=== PATIENT | female | born 1940 | race Caucasian/White ===

== ENCOUNTER 2017-09-03 10:36 | Inpatient (IN) | payer OTHER ==
[~2017-09-03] VITALS: Ht 142.2 cm; Wt 56.7 kg
[~2017-09-03 10:36] MED LIST: ASA-EC81 MG PO; CATAFLAM50 MG PO; HYDROCODONE-CH115 ML PO; LEVAQUIN750 MG PO; LIPITOR20 MG PO; METFORMIN HCL1000 MG PO; METFORMIN HCL500 MG PO; NIFE60TA3 PO; OMEPRAZOLE20 MG PO; ORPH100T PO; PREDNISONE10 MG PO; PREDNISONE20 MG PO; ULTRAM50 MG PO; ZANTAC 7575 MG PO
[2017-09-12] MEDS ORDERED: LORATADINE10 MG PO (15:35)
[2017-09-12] MEDS ORDERED: QUESTRAN PACKET4 GM PO (15:36)
== END 2017-09-12 16:32 | disposition home or self-care (01) | DRG 193 ==
LOC: ER 10:36 → MEDI 17:15
PROC: 5A09457 Assistance with Respiratory Ventilation, 24-96 Consecutive Hours, Continuous Positive Airway Pressure (ICD-10-PCS; principal; 2017-09-03)
PROC: 3E0F7GC Introduction of Other Therapeutic Substance into Respiratory Tract, Via Natural or Artificial Opening (ICD-10-PCS; 2017-09-03)
PROC: 4A033R1 Measurement of Arterial Saturation, Peripheral, Percutaneous Approach (ICD-10-PCS; 2017-09-03)
PROC: BW24ZZZ Computerized Tomography (CT Scan) of Chest and Abdomen (ICD-10-PCS; 2017-09-03)
DX: J18.9 Pneumonia, unspecified organism (principal); J96.01 Acute respiratory failure with hypoxia; B37.0 Candidal stomatitis; J44.1 Chronic obstructive pulmonary disease with (acute) exacerbation; J45.41 Moderate persistent asthma with (acute) exacerbation; N39.0 Urinary tract infection, site not specified; J84.112 Idiopathic pulmonary fibrosis; I10 Essential (primary) hypertension; E11.9 Type 2 diabetes mellitus without complications; E78.00 Pure hypercholesterolemia, unspecified; J30.89 Other allergic rhinitis; B96.20 Unspecified Escherichia coli [E. coli] as the cause of diseases classified elsewhere

== ENCOUNTER 2017-10-08 10:22 | Inpatient (IN) | payer OTHER ==
[~2017-10-08] VITALS: Ht 53.3 cm; Wt 4.0 kg
[~2017-10-08 10:22] MED LIST changes: +LORATADINE10 MG PO; +QUESTRAN PACKET4 GM PO
[2017-10-13] MEDS ORDERED: LIPITOR20 MG PO (15:38)
[2017-10-13] MEDS ORDERED: ADULT ASPIRIN81 MG PO (15:40)
[2017-10-13] MEDS ORDERED: VERAPAMIL ER120 MG PO (15:40)
[2017-10-13] MEDS ORDERED: GABAPENTIN800 MG PO (15:40)
[2017-10-13] MEDS ORDERED: BENZONATATE100 MG PO (15:41)
[2017-10-13] MEDS ORDERED: SUCRALFATE1 GM/10 ML PO (15:41)
[2017-10-13] MEDS ORDERED: PREDNISONE20 MG PO (15:42)
[2017-10-13] MEDS ORDERED: PREDNISONE10 M1 PO (15:43)
== END 2017-10-13 18:28 | disposition home or self-care (01) | DRG 193 ==
LOC: ER 10:22 → SURH 17:31 → MEDI 10-11 16:30
PROC: 4A033R1 Measurement of Arterial Saturation, Peripheral, Percutaneous Approach (ICD-10-PCS; principal; 2017-10-08)
PROC: 3E0F7GC Introduction of Other Therapeutic Substance into Respiratory Tract, Via Natural or Artificial Opening (ICD-10-PCS; 2017-10-08)
PROC: B246ZZZ Ultrasonography of Right and Left Heart (ICD-10-PCS; 2017-10-08)
PROC: 4A12X4Z Monitoring of Cardiac Electrical Activity, External Approach (ICD-10-PCS; 2017-10-08)
PROC: BW24ZZZ Computerized Tomography (CT Scan) of Chest and Abdomen (ICD-10-PCS; 2017-10-09)
DX: J18.9 Pneumonia, unspecified organism (principal); J96.01 Acute respiratory failure with hypoxia; J44.1 Chronic obstructive pulmonary disease with (acute) exacerbation; J45.31 Mild persistent asthma with (acute) exacerbation; I10 Essential (primary) hypertension; E11.9 Type 2 diabetes mellitus without complications; R00.0 Tachycardia, unspecified; Z79.52 Long term (current) use of systemic steroids; J84.112 Idiopathic pulmonary fibrosis; E78.00 Pure hypercholesterolemia, unspecified; R07.89 Other chest pain

== ENCOUNTER → 2017-10-15 | Emergency (ER) | payer OTHER ==
[~2017-10-15] VITALS: Ht 144.8 cm; Wt 54.4 kg
[~2017-10-15] MED LIST changes: +ADULT ASPIRIN81 MG PO; +BENZONATATE100 MG PO; +GABAPENTIN800 MG PO; +PREDNISONE10 M1 PO; +SUCRALFATE1 GM/10 ML PO; +VERAPAMIL ER120 MG PO
== END | disposition home or self-care (01) ==
LOC: ER 09:43
DX: J44.1 Chronic obstructive pulmonary disease with (acute) exacerbation (principal); I95.9 Hypotension, unspecified; E11.65 Type 2 diabetes mellitus with hyperglycemia

== ENCOUNTER 2017-12-02 11:00 | Emergency (ER) | payer OTHER ==
[~2017-12-02] VITALS: Ht 142.2 cm; Wt 66.2 kg
== END 2017-12-02 16:34 | disposition home or self-care (01) ==
LOC: ER 11:00
DX: R06.02 Shortness of breath (principal); J84.10 Pulmonary fibrosis, unspecified; J11.1 Influenza due to unidentified influenza virus with other respiratory manifestations

== ENCOUNTER 2017-12-06 11:52 | Inpatient (IN) | payer OTHER ==
[~2017-12-06] VITALS: Ht 144.8 cm; Wt 63.5 kg
== END 2017-12-19 18:07 | disposition home health service (06) | DRG 309 ==
LOC: ER 11:52 → MEDI 12-07 11:56 → SEC-K 12-07 11:56 → MEDI 12-07 12:51
PROC: 3E0F7GC Introduction of Other Therapeutic Substance into Respiratory Tract, Via Natural or Artificial Opening (ICD-10-PCS; principal; 2017-12-07)
PROC: B246ZZZ Ultrasonography of Right and Left Heart (ICD-10-PCS; 2017-12-07)
PROC: 4A12X4Z Monitoring of Cardiac Electrical Activity, External Approach (ICD-10-PCS; 2017-12-07)
PROC: 02HV33Z Insertion of Infusion Device into Superior Vena Cava, Percutaneous Approach (ICD-10-PCS; 2017-12-15)
DX: I48.0 Paroxysmal atrial fibrillation (principal); J44.1 Chronic obstructive pulmonary disease with (acute) exacerbation; E27.49 Other adrenocortical insufficiency; B37.49 Other urogenital candidiasis; E11.65 Type 2 diabetes mellitus with hyperglycemia; Z79.52 Long term (current) use of systemic steroids; J84.112 Idiopathic pulmonary fibrosis; R09.02 Hypoxemia; E11.42 Type 2 diabetes mellitus with diabetic polyneuropathy; I10 Essential (primary) hypertension; I34.0 Nonrheumatic mitral (valve) insufficiency; B96.20 Unspecified Escherichia coli [E. coli] as the cause of diseases classified elsewhere; B96.1 Klebsiella pneumoniae [K. pneumoniae] as the cause of diseases classified elsewhere; B95.2 Enterococcus as the cause of diseases classified elsewhere; Z16.12 Extended spectrum beta lactamase (ESBL) resistance; B37.2 Candidiasis of skin and nail; E78.00 Pure hypercholesterolemia, unspecified; L89.320 Pressure ulcer of left buttock, unstageable

== ENCOUNTER 2018-01-25 14:21 | Emergency (ER) | payer OTHER ==
[~2018-01-25] VITALS: Ht 147.3 cm; Wt 68.0 kg
[2018-01-25] MEDS ORDERED: PAROXETINE HCL10 MG (14:44)
[2018-01-25] MEDS ORDERED: AMIODARONE HCL200 MG (14:44)
[2018-01-25] MEDS ORDERED: ELIQUIS2.5 MG (14:45)
[2018-01-25] MEDS ORDERED: DILTIAZEM 24HR120 MG (14:45)
[2018-01-25] MEDS ORDERED: CLARINEX (14:47)
[2018-01-25] MEDS ORDERED: ESBRIET267 MG (14:48)
== END 2018-01-25 21:19 | disposition home or self-care (01) ==
LOC: ER 14:21
DX: R07.89 Other chest pain (principal)

== ENCOUNTER 2018-01-27 20:57 | Inpatient (IN) | payer OTHER ==
[~2018-01-27] VITALS: Ht 144.8 cm; Wt 52.2 kg
[~2018-01-27 20:57] MED LIST changes: +AMIODARONE HCL200 MG; +CLARINEX; +DILTIAZEM 24HR120 MG; +ELIQUIS2.5 MG; +ESBRIET267 MG; +PAROXETINE HCL10 MG
== END 2018-02-07 15:02 | disposition expired | DRG 177 ==
LOC: ER 20:57 → ICU-2 01-28 10:14 → ICU 02-02 14:39
PROC: 3E0F7GC Introduction of Other Therapeutic Substance into Respiratory Tract, Via Natural or Artificial Opening (ICD-10-PCS; 2018-01-28)
PROC: 4A033R1 Measurement of Arterial Saturation, Peripheral, Percutaneous Approach (ICD-10-PCS; 2018-01-28)
PROC: 5A09557 Assistance with Respiratory Ventilation, Greater than 96 Consecutive Hours, Continuous Positive Airway Pressure (ICD-10-PCS; principal; 2018-01-29)
PROC: B246ZZZ Ultrasonography of Right and Left Heart (ICD-10-PCS; 2018-01-31)
PROC: B54DZZZ Ultrasonography of Bilateral Lower Extremity Veins (ICD-10-PCS; 2018-02-03)
DX: J15.5 Pneumonia due to Escherichia coli (principal); J96.01 Acute respiratory failure with hypoxia; I21.4 Non-ST elevation (NSTEMI) myocardial infarction; I50.33 Acute on chronic diastolic (congestive) heart failure; J44.1 Chronic obstructive pulmonary disease with (acute) exacerbation; B37.49 Other urogenital candidiasis; J45.51 Severe persistent asthma with (acute) exacerbation; E27.3 Drug-induced adrenocortical insufficiency; N39.0 Urinary tract infection, site not specified; J84.112 Idiopathic pulmonary fibrosis; Z79.52 Long term (current) use of systemic steroids; E78.00 Pure hypercholesterolemia, unspecified; I48.0 Paroxysmal atrial fibrillation; Z79.01 Long term (current) use of anticoagulants; E11.42 Type 2 diabetes mellitus with diabetic polyneuropathy; Z66 Do not resuscitate; I27.29 Other secondary pulmonary hypertension; I11.0 Hypertensive heart disease with heart failure; T38.0X5A Adverse effect of glucocorticoids and synthetic analogues, initial encounter; Z78.1 Physical restraint status